=== PATIENT | male | born 2000 | race African-American/Black ===

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

== ENCOUNTER 2020-04-24 12:50 | Emergency (ER) | payer SELFPAY ==
[2020-04-24] MEDS ORDERED: Azithromycin 250 MG TAB ONE (13:41)
[2020-04-24] MEDS ORDERED: cefTRIAXone\\ROCEPHIN 250 MG VIAL ONE (13:41)
[2020-04-24] MEDS ORDERED: Lidocaine 1% PF 5 ML VIAL ONE (13:42)
[2020-04-24 14:31] LABS: Bacteria/HPF None Seen HPF (None Seen); Bilirubin Negative (Negative); Blood, Urine Negative (Negative); Clarity Clear (Clear); Glucose, Urine (Dipstick) Normal (Negative); Ketone, Urine Negative (Negative); Leukocyte 500 Leu/uL (Negative); Nitrite Negative (Negative); Protein, Urine (Dipstick) 20 mg/dL (Neg-Trace); RBC/HPF 0-3 HPF (0-3); Specific Gravity, Urine 1.029 (1.002-1.036); Squamous Epithelial 0-3 HPF (0-3); Urobilinogen 3 mg/dL (Less than 2); WBC/HPF Greater than 50 HPF (0-3)
[2020-04-27 22:41] LABS: Chlam.trachomatis by PCR,Urine Not Detected (NotDetected)
== END 2020-04-24 14:44 | disposition home or self-care (01) ==
LOC: ERS 12:50
DX: N39.0 Urinary tract infection, site not specified (principal); A64 Unspecified sexually transmitted disease
CPT/HCPCS: 81003; 81015; 87086; 87491; 87591; 96372; 99283; J0696